=== PATIENT | female | born 1980 | race Caucasian/White ===

== ENCOUNTER → 2016-12-17 | Outpatient (CLI) | payer MEDICAID ==
[2015-04-14 23:19] VITALS: BP 131/60
[~2016-12-17] MED LIST: DEPO-PROVER150 MG/M2 IM; NORCO 325 MG-51 TAB PO; PEPTO-BISM262 MG/15 PO
== END ==
LOC: MAMMO 13:36
DX: Z12.31 Encounter for screening mammogram for malignant neoplasm of breast (principal); N63.22 Unspecified lump in the left breast, upper inner quadrant
CPT/HCPCS: G0202

== ENCOUNTER → 2017-01-23 | Outpatient (CLI) | payer MEDICAID ==
[2015-04-14 23:19] VITALS: BP 131/60
== END ==
LOC: MAMMO 08:39
DX: N63.21 Unspecified lump in the left breast, upper outer quadrant (principal)